=== PATIENT | female | born 1990 | race Caucasian/White ===

== ENCOUNTER 2016-08-29 01:48 | Emergency (ER) | payer BC ==
[2016-08-29 04:10] VITALS: BP 111/75
== END 2016-08-29 04:10 | disposition short-term general hospital (02) ==
LOC: ED 01:48
DX: S05.02XA Injury of conjunctiva and corneal abrasion without foreign body, left eye, initial encounter (principal); H57.04 Mydriasis; X58.XXXA Exposure to other specified factors, initial encounter; Y93.89 Activity, other specified; Y99.8 Other external cause status; Y92.89 Other specified places as the place of occurrence of the external cause
CPT/HCPCS: J0132; J2270; J2405; J3490